=== PATIENT | female | born 1950 | race American Indian/Alaskan Native ===

== ENCOUNTER 2018-02-04 08:39 | Day surgery (SDC) | payer MEDICARE, OTHER ==
[2018-02-04] MEDS ORDERED: LOPRESSOR PO ONE ×2 (09:07→10:00)
[2018-02-04] MEDS ORDERED: LOPRESSOR ONE (09:08)
[2018-02-04] MEDS ORDERED: NITROSTAT SL ONE (09:10)
[2018-02-04] MEDS ORDERED: LOPRESSOR IV SCH (10:00)
[2018-02-04 11:46] VITALS: BP 148/96
--- NOTE | 2018-02-04 14:42 | Cat Scan Report ---
CT ANGIO HEART STRUCTURE/MORPHOLOGY/FUNCTION: INDICATION: Abnormal EKG. COMPARISON: None similar. FINDINGS: A limited chest CT scan was carried out for evaluation of heart structure, morphology and function. This dictation is for the non-cardiac portion of the chest which was included. No definite hilar or mediastinal mass. Atherosclerotic calcifications. Visualized lungs well-expanded and clear. Mild nonspecific distal esophageal wall prominence/thickening, not excluded for gastroesophageal reflux and/or hiatal hernia, amongst others. No acute significant abnormality seen in included upper abdomen. Intact bones. IMPRESSION: Findings, as above. Thank you for the opportunity to participate in this patient's care.
--- NOTE | 2018-02-05 05:40 | Procedure Note ---
[address] ORDERING PHYSICIAN: Edith Kimble M.D. INDICATION: Abnormal EKG changes. PROCEDURE: The patient received 0.4 mg of nitroglycerin sublingual for coronary vasodilation prior to scanning. Using 64 slice MDCT, low dose noncontrast calcium scoring CT was performed with prospective gating followed by contrast enhanced CTA at 0.6 mm thickness with retrospective gating and 100 mL Isovue 370 IV. The scan was performed from the chayito through the base of the heart. Data was reconstructed using multiple cardiac phases. FINDINGS: 1. The overall quality of the scan is good limited by the following artifact: Motion artifact caused by cardiac motion secondary to cardiac arrhythmias. 2. The calcium score is severely elevated calculated at 1537, which is consistent with extensive plaque burden. 3. This is a right dominant circulation. 4. The left main originates from the left coronary cusp. 5. The left main has evidence of extensive coronary calcifications involving the ostium, mid segment as well as the distal left main. These calcifications are likely obstructive. 6. The proximal LAD is heavily calcified. These calcifications are also a likely obstructive. 7. The mid LAD is also heavily calcified with likely obstructive calcified lesions. 8. The very distal LAD is also heavily calcified with likely obstructive lesions. 9. The proximal circumflex artery has evidence of a calcified lesion. 10. The second obtuse marginal has evidence of a heterogeneous obstructive plaque noted at the ostium in the proximal segment. 11. The right coronary artery originates from the right coronary cusp. 12. The proximal right coronary artery has extensive calcifications. There is a heterogeneous plaque noted in the proximal segment of the right coronary artery that is a likely obstructive. 13. The mid right coronary artery has no evidence of obstructive disease. 14. The distal right coronary artery has no evidence of obstructive disease. 15. The PDA has no evidence of obstructive disease. 16. The PLVB has no evidence of obstructive disease. 17. Aorta: The sinus of Valsalva measures 31.7 x 31.9 mm. 18. The ascending aorta measures 30.3 x 27.2 mm. 19. The descending thoracic aorta at the level of the diaphragm measures 25.2 x 22.9 mm. 20. The aortic valve is trileaflet. 21. Scattered calcifications are noted throughout the ascending aorta as well as the descending thoracic aorta. 22. The pulmonary artery is not well opacified. 23. The pulmonary veins are visualized and normal entering the left atrium. 24. Atrial appendage exhibits no evidence of filling defects. 25. The left ventricle is normal in size. There is evidence of concentric left ventricular hypertrophy. The left ventricular ejection fraction is measured at 82%. Left ventricular end-diastolic volume is measured at 79 mL, end systolic volume at 13 mL and the stroke volume is 66 mL. 26. Pericardium: There is no evidence of effusion. 27. Radiology overread of extracardiac structures: Mild nonspecific distal esophageal wall prominence/thickening, not excluded for gastroesophageal reflux and/or hiatal hernia amongst others. IMPRESSION: 1. Good quality scan limited by the following artifact: Motion artifact caused by cardiac arrhythmias. 2. Extensive coronary calcification with a calcium score greater than 1500 consistent with a very high plaque burden. 3. Complex calcified and likely obstructive disease noted in the left main, proximal left anterior descending and mid left anterior descending, proximal circumflex and proximal second obtuse marginal, as well as proximal right coronary artery. 4. Normal left ventricular size and systolic function with an ejection fraction measured at 82%. 5. Scattered atherosclerotic calcifications noted in the ascending as well as the descending thoracic aorta. 6. Mild nonspecific distal esophageal wall prominence and thickening, not excluded for gastroesophageal reflux and/or hiatal hernia. RECOMMENDATION: The patient will be recommended for coronary angiogram. These results were discussed with referring physician Dr. Edith Kimble. JOB# [id number] [facility]/CHAR
== END 2018-02-04 11:40 | disposition home or self-care (01) ==
LOC: CATHLABREC 08:39 → EDSTATUS 09:45 → CATHLABREC 11:40
PROVIDERS: ATTEND Internal Medicine
DX: I70.0 Atherosclerosis of aorta (principal); I25.10 Atherosclerotic heart disease of native coronary artery without angina pectoris; E78.5 Hyperlipidemia, unspecified
CPT/HCPCS: 36415; 75574; 82565; 84520; Q9967